=== PATIENT | female | born 1945 | race African-American/Black ===

== ENCOUNTER → 2017-05-25 | Outpatient (CLI) | payer MEDICARE | LOC: WI 14:21 | PROVIDERS: ATTEND Internal Medicine | DX: Z12.31 Encounter for screening mammogram for malignant neoplasm of breast (principal) | CPT/HCPCS: 77067; G0202 ==

== ENCOUNTER → 2017-06-19 | Outpatient (CLI) | payer MEDICARE ==
--- NOTE | 2017-06-21 17:21 | WOMENS IMAGING REPORT ---
EXAM DESCRIPTION: 3D DX MAMMO RIGHT UNILAT COMPLETED DATE/TIME: 06/19/2017 12:26 pm REASON FOR STUDY: INCONCLUSIVE; R92.2 R92.2 INCONCLUSIVE MAMMOGRAM COMPARISON: 05/25/2017 TECHNIQUE: Cone compression mediolateral oblique images of the breast recorded using digital acquisi tion and breast tomosynthesis. Additional right breast 90 mediolateral view and repeat right breast CC view mammograms and tomosynt hesis LIMITATIONS: None. FINDINGS: BREAST: Right MASSES: No suspicious masses. Findings on 05/25/2017 mammograms represented superimposed shadows CALCIFICATIONS: No new or suspicious calcifications. ARCHITECTURAL DISTORTION: None. DEVELOPING DENSITY: None. ASYMMETRY: None noted. OTHER: No other significant findings. Read with the assistance of CAD. .[facility] R2 Cenova Version 1.3 .[facility] - R2 Cenova Version 1.3 .[facility] - R2 Cenova Version 2.4 .[facility] [place] - R2 Cenova Version 2.4 .[facility] - R2 Snow Ranger Version 9.2 IMPRESSION: No mammographic evidence for malignancy right breast BREAST DENSITY: b. There are scattered areas of fibroglandular density. BIRAD: 1 Negative. RECOMMENDATION: RECOMMENDED FOLLOW UP: Please resume bilateral screening mammograms/tomosynthesis in May 2018 SPECIFIC INTERVENTION/IMAGING/CONSULTATION RECOMMENDED:No additional intervention/ imaging/consultati on needed at this time. COMMUNICATION:Patient notified by letter COMMENT: The patient has been notified of the results by letter per SA requirements. Additional no tification policies are in place for contacting patient with suspicious or incomplete findings. Quality ID #[id number]: The [employer] recommends an annual screening mammogram for women aged 40 years or over. This facility utilizes a reminder system to ensure that all patients receive reminder letters, and/or direct phone calls for appointments. This includes reminders for routine scr eening mammograms, diagnostic mammograms, or other Breast Imaging Interventions when appropriate. Th is patient will be placed in the appropriate reminder system. The [employer] ([employer]) has developed recommendations for screening MRI of the breast s in certain patient populations, to be used in conjunction with mammography. Breast MRI surveillanc e may be appropriate for women with more than 20% lifetime risk of developing breast cancer as deter mined by genetic testing, significant family history of the disease, or history of mantle radiation f or Hodgkins Disease. ACR Practice Guidelines 2008. DBT Technology DBT is a type of tomographic mammography. With conventional mammography, overlapping breast tissue ma y make lesions difficult to detect, even with good compression. DBT uses an x-ray tube that rotates a round the breast, taking images at different angles. These images are then combined to create thin sl ices of the breast that the radiologist can view as a 3D reconstruction. The [employer] unit can perform full-field digital mammograms (2D imaging); or DBT (3D imaging); or both, in a combination mode that quickly performs both the mammogram and the tomosynthesis scan while the breast is still compressed. PQRS 6045F: Fluoroscopic imaging is not utilized for breast tomosynthesis. TECHNICAL DOCUMENTATION: FINDING NUMBER: (1) ASSESSMENT: (1) JOB ID: [id number] [employer]- All Rights Reserved
== END ==
LOC: WI 12:11
PROVIDERS: ATTEND Internal Medicine
DX: R92.2 Inconclusive mammogram (principal)
CPT/HCPCS: 77065; G0279